=== PATIENT | female | born 1995 | race Caucasian/White ===

== ENCOUNTER → 2019-12-25 | Outpatient (CLI) | payer MEDICAID, SELFPAY ==
[2019-12-28 05:07] LABS: Chlamydia By Nucleic Acid AMP Negative (Negative)
[2019-12-28 07:47] LABS: Gonococcus By Nucleic Acid AMP Negative (Negative)
== END | disposition home or self-care (01) ==
LOC: LABSPEC 13:48
PROVIDERS: Visit Provider Student in an Organized Health Care Education/Training Program
DX: Z11.3 Encounter for screening for infections with a predominantly sexual mode of transmission (principal); Z32.01 Encounter for pregnancy test, result positive
CPT/HCPCS: 87491; 87591

== ENCOUNTER → 2020-01-08 17:00 | Outpatient (CLI) | payer MEDICAID, SELFPAY ==
[2020-01-08 17:33] LABS: Absolute Lymphocyte Count 1.39 X10^3/uL (0.83-4.51); Absolute Neutrophil Count 4.5 X10^3/uL (2.0-7.7); Basophil# 0.03 X10^3/uL; Basophil% 0.5 % (0-1); Eosinophil# 0.04 X10^3/uL; Eosinophils% 0.6 % (0-5); Hematocrit 35.1 % (37-47); Hemoglobin 12.3 g/dL (12.0-15.0); Lymphocyte # 1.39 X10^3/ul (4.0); Lymphocyte % 21.8 % (19-41); Mean Corpuscular Hgb 30.9 pg (27.0-32.0); Mean Corpuscular Volume 88.2 fL (81-99); Mean Platelet Vol. 10.1 fl (6.2-12.0); Monocyte% 6.3 % (0-10); NRBC Flagged by Analyzer 0 % (0-5); Neutrophil # 4.49 X10^3/uL (2.7-7.7); Neutrophil % 70.5 % (47-70); Platelet Count 194 K/mm3 (150-450); RBC Distribution Width CV 12.1 % (11.6-14.6); RBC Distribution Width SD 38.5 fl (35.1-43.9); Red Blood Count 3.98 M/mm3 (4.2-5.4); White Blood Count 6.4 K/mm3 (4.4-11.0)
[2020-01-08 17:48] LABS: Color, Urine Yellow (Yellow); Glucose, Dipstick Normal (Normal); Ketone-Dipstick Negative (Negative); Leukocyte Esterase-Dipstick 25 /ul (Negative); Nitrite-Dipstick Negative (Negative); Occult Blood-Urine Negative /ul (Negative); Protein-Dipstick Negative (Negative); Specific Gravity, Urine 1.025 (1.002-1.030); Urine Bilirubin Dipstick Negative (Negative); Urine Clarity Clear (Clear); Urine Urobilinogen Normal (Normal)
[2020-01-08 17:58] LABS: Amphetamine Urine VISTA NEGATIVE (<1000 ng/mL); Barbiturate Urine VISTA NEGATIVE (< 200 ng/mL); Benzodiazepine Urine VISTA NEGATIVE (< 200 ng/mL); Cocaine Urine VISTA NEGATIVE (< 300 ng/mL); Ecstacy Urine VISTA NEGATIVE (< 500 ng/mL); Methadone Urine VISTA NEGATIVE (< 300 ng/mL); PCP Urine VISTA NEGATIVE (< 25 ng/mL); THC Urine VISTA NEGATIVE (< 50 ng/mL); Vista UDS pH Range 5
[2020-01-09 10:52] LABS: HIV - WCH Non-Reactive (Nonreactive); Hepatitis B Surface Antigen Non-Reactive (Nonreactive); Hepatitis C Antibody Non-Reactive (Nonreactive); Rubella IgG 114.7 IU/mL
[2020-01-10 01:11] LABS: Prenatal RPR NONREACTIVE (NONREACTIVE)
== END ==
PROVIDERS: Visit Provider Obstetrics & Gynecology
DX: Z34.81 Encounter for supervision of other normal pregnancy, first trimester (principal)
CPT/HCPCS: 36415; 80307; 81002; 84443; 85025; 86703; 86762; 86803; 87086; 87088; 87340

== ENCOUNTER → 2020-03-11 16:41 | Outpatient (CLI) | payer MEDICAID, SELFPAY ==
[2020-03-18 13:24] LABS: CF, Screen Comment: (.)
== END ==
PROVIDERS: Visit Provider Student in an Organized Health Care Education/Training Program
DX: Z13.79 Encounter for other screening for genetic and chromosomal anomalies (principal)
CPT/HCPCS: 36415; 81220

== ENCOUNTER 2020-04-10 18:35 | Outpatient (CLI) | payer MEDICAID, SELFPAY ==
[2020-04-10] VITALS (9 sets, daily range): BP systolic 109–119; BP diastolic 62–67; PULSE 90–116; TEMP 37.3; O2SAT 79–100; BMI 32.3
[2020-04-10] MEDS: Lactated Ringers 500 ML 999 ML IV (19:50)
[2020-04-10] MEDS: Ondansetron 4 MG/2 ML Vial IV (19:57)
[2020-04-10 20:12] LABS: Absolute Lymphocyte Count 0.45 X10^3/uL (0.83-4.51); Absolute Neutrophil Count 7.9 X10^3/uL (2.0-7.7); Basophil# 0.03 X10^3/uL; Basophil% 0.3 % (0-1); Eosinophil# 0.01 X10^3/uL; Eosinophils% 0.1 % (0-5); Hematocrit 36.4 % (37-47); Hemoglobin 12.6 g/dL (12.0-15.0); Lymphocyte # 0.45 X10^3/ul (4.0); Lymphocyte % 5.1 % (19-41); Mean Corp Hgb Conc 34.6 g/dL (32-36); Mean Corpuscular Hgb 30.5 pg (27.0-32.0); Mean Corpuscular Volume 88.1 fL (81-99); Mean Platelet Vol. 10.3 fl (6.2-12.0); Monocyte# 0.33 X10^3/uL; Monocyte% 3.8 % (0-10); NRBC Flagged by Analyzer 0 % (0-5); Neutrophil # 7.93 X10^3/uL (2.7-7.7); Neutrophil % 90.5 % (47-70); POSITIVE DIFFERENTIAL YES; Platelet Count 175 K/mm3 (150-450); RBC Distribution Width CV 13.4 % (11.6-14.6); RBC Distribution Width SD 42.6 fl (35.1-43.9); Red Blood Count 4.13 M/mm3 (4.2-5.4); White Blood Count 8.8 K/mm3 (4.4-11.0)
[2020-04-10] MEDS: Lactated Ringers 1,000 ML 150 ML IV (20:21)
[2020-04-10 20:30] LABS: ALB/GLOB Ratio 0.8 RATIO (0.9-2.4); AST(SGOT) 16 U/L (15-37); Alanine Aminotransfer ALT/SGPT 16 U/L (13-56); Alkaline Phosphatase 54 U/L (45-117); Anion Gap 10 (5-15); BUN 11 mg/dL (7-18); BUN/Creat Ratio 24.7 RATIO (10-20); Calcium,Total 8.1 mg/dL (8.5-10.1); Chloride 108 mmol/L (98-107); Creatinine, Serum 0.44 mg/dL (0.55-1.02); EST Glomerular Filtration Rate 184 mL/min (>60); Est Glom Filt Rate - Afr Amer 223 mL/min (>60); Estimated Creatinine Clearance 164.49 ml/min; Glucose 90 mg/dL (74-106); Lipase 97 U/L (73-393); Potassium 3.7 mmol/L (3.5-5.1); Sodium Level 139 mmol/L (136-145)
[2020-04-10 20:49] LABS: Differential Indicated SCAN CRITERIA MET
[2020-04-10 20:50] LABS: Anisocytosis RARE; Platelet Estimate ADEQUATE (ADEQ); Red Cell Morphology N CHROM NORMAL (NORM C&C)
--- NOTE | 2020-04-10 23:10 | PCM.HPOB.BLA ---
History and Physical Chief complaint: Nausea vomiting diarrhea History of present illness: 24-year-old G2, P1 at 21 weeks and 6 days with MIKE: 08/15/2020 by LMP arrives with nausea vomiting and diarrhea. Patient has had the symptoms since this morning. 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 Patient was tested for Covid earlier this week and today both negative. Denies headache, visual changes, chest pain, shortness of breath, right upper quadrant pain. Patient states good movement. Obstetric history: G1: Breech 38-week primary . Gestational hypertension G2: Current Past medical history: Hypothyroidism, depression Past surgical history: Breast reduction, Medications: vitamin, aspirin, Synthroid, Ventolin Allergies: No known drug allergies Social history: Denies smoking, alcohol use, drug use Review of systems: Besides the above pertinent positives a full review of systems was performed and found to be negative Physical exam: Vital Signs Temp Pulse BP Pulse Ox 04/10/20 20:17 99.1 F 90 119/62 04/10/20 19:31 79 04/10/20 19:12 110 H 100 04/10/20 19:07 110 H 100 04/10/20 19:02 116 H 97 04/10/20 18:57 106 H 99 04/10/20 18:51 104 H 99 04/10/20 18:46 113 H 100 General: Normal-appearing no acute distress HEENT: Normocephalic atraumatic no cervical lymphadenopathy Cardiac: Regular rate and rhythm murmurs rubs or gallops Respiratory: Clear to auscultation bilaterally no wheezes rales or crackles Abdomen: Soft nontender, gravid. Pelvic exam: Cervical exam is closed thick and high Extremities: No peripheral edema normal peripheral pulses Psych: Normal affect normal demeanor nonpressured speech Mom's Labs & Results 04/10/20 04/10/20 19:35 19:35 WBC 8.8 RBC 4.13 L Hgb 12.6 Hct 36.4 L MCV 88.1 MCH 30.5 MCHC 34.6 RDW Std Deviation 42.6 RDW Coeff of Ca 13.4 Plt Count 175 MPV 10.3 Immature Gran % (Auto) 0.200 Neut % (Auto) 90.5 H Lymph % (Auto) 5.1 L [place] % (Auto) 3.8 Eos % (Auto) 0.1 Baso % (Auto) 0.3 Absolute Neuts (auto) 7.9 H Absolute Lymphs (auto) 0.45 L Nucleated RBC % 0 Differential Comment SEE COMMENT Platelet Estimate ADEQUATE RBC Morphology N CHROM Anisocytosis RARE Sodium 139 Potassium 3.7 Chloride 108 H Carbon Dioxide 21.0 Anion Gap 10 BUN 11 Creatinine 0.44 L Estim Creat Clear Calc 164.49 Est GFR (MDRD) Af Amer 223 Est GFR (MDRD) Non-Af 184 BUN/Creatinine Ratio 24.7 H Glucose 90 Calcium 8.1 L Total Bilirubin 0.30 AST 16 ALT 16 Alkaline Phosphatase 54 Total Protein 7.0 Albumin 3.0 L Globulin 4.0 Albumin/Globulin Ratio 0.8 L Lipase 97 Assessment and plan: 24-year-old G2, P1 at 21 weeks and 6 days with likely gastroenteritis from her work born pathogen. Covid negative x2. To IV hydrate, Zofran for nausea. When tolerating p.o. we will give Imodium for diarrhea.
[2020-04-11 00:02] VITALS: TEMP 37.8
[2020-04-11] MEDS: 0.9% Saline Lock 10 ML Syringe IV (00:02)
[2020-04-11] MEDS: Ondansetron 4 MG/2 ML Vial IV (00:02)
[2020-04-11] MEDS: Lactated Ringers 1,000 ML 150 ML IV (02:55)
[2020-04-11] MEDS: Loperamide 2 MG Capsule 8 MG PO (02:57)
[2020-04-11 03:05] VITALS: BP 116/63; PULSE 96; O2SAT 97
[2020-04-11 03:06] VITALS: TEMP 37.2
--- NOTE | 2020-04-11 08:08 | OB.TRI.NOTE ---
History of Present Illness Date of Service: 04/10/20 Was patient seen by the physician?: No Reason For Visit: Nausea Vomiting Diarrhea Date of Service: 04/10/20 Final MIKE: 08/15/20 Final MIKE Source: LMP Gestational age: 22 Weeks and 0 Days History of Present Illness: 24-year-old G2, P1 at 21 weeks and 6 days with MIKE: 08/15/2020 by LMP called the office with nausea vomiting and diarrhea. patient told the office has had the symptoms since this morning. 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 Patient was tested for Covid earlier this week and today both negative. Denies headache, visual changes, chest pain, shortness of breath, right upper quadrant pain. Patient states good movement. Allergies No Known Allergies Allergy (Verified 04/10/20 19:39) Laboratory Studies: Laboratory Tests 04/10/20 04/10/20 Range/Units 19:35 19:35 WBC 8.8 (4.4-11.0) K/mm3 RBC 4.13 L (4.2-5.4) M/mm3 Hgb 12.6 (12.0-15.0) g/dL Hct 36.4 L (37-47) % MCV 88.1 (81-99) fL MCH 30.5 (27.0-32.0) pg MCHC 34.6 (32-36) g/dL RDW Std Deviation 42.6 (35.1-43.9) fl RDW Coeff of Ca 13.4 (11.6-14.6) % Plt Count 175 (150-450) K/mm3 MPV 10.3 (6.2-12.0) fl Immature Gran % (Auto) 0.200 (0.0-0.9) % Neut % (Auto) 90.5 H (47-70) % Lymph % (Auto) 5.1 L (19-41) % [place] % (Auto) 3.8 (0-10) % Eos % (Auto) 0.1 (0-5) % Baso % (Auto) 0.3 (0-1) % Absolute Neuts (auto) 7.9 H (2.0-7.7) X10^3/uL Absolute Lymphs (auto) 0.45 L (0.83-4.51) X10^3/uL Nucleated RBC % 0 (0-5) % Differential Comment SEE COMMENT Platelet Estimate ADEQUATE (ADEQ) RBC Morphology N CHROM (NORM C&C) NORMAL Anisocytosis RARE Sodium 139 (136-145) mmol/L Potassium 3.7 (3.5-5.1) mmol/L Chloride 108 H (98-107) mmol/L Carbon Dioxide 21.0 (21.0-32.0) mmol/L Anion Gap 10 (5-15) BUN 11 (7-18) mg/dL Creatinine 0.44 L (0.55-1.02) mg/dL Estim Creat Clear Calc 164.49 ml/min Est GFR (MDRD) Af Amer 223 (>60) mL/min Est GFR (MDRD) Non-Af 184 (>60) mL/min BUN/Creatinine Ratio 24.7 H (10-20) RATIO Glucose 90 (74-106) mg/dL Calcium 8.1 L (8.5-10.1) mg/dL Total Bilirubin 0.30 (0.20-1.00) mg/dL AST 16 (15-37) U/L ALT 16 (13-56) U/L Alkaline Phosphatase 54 (45-117) U/L Total Protein 7.0 (6.4-8.2) g/dL Albumin 3.0 L (3.2-5.0) g/dL Globulin 4.0 (2.2-4.2) g/dL Albumin/Globulin Ratio 0.8 L (0.9-2.4) RATIO Lipase 97 (73-393) U/L Physical Exam Vitals: Vital Signs Temp Pulse BP Pulse Ox 98.9 F 96 116/63 97 04/11/20 03:06 04/11/20 03:05 04/11/20 03:05 04/11/20 03:05 NST - FHR Rate Baby A Baseline: 120 Impression/Plan 24-year-old G2, P1 at 21 weeks and 6 days with likely gastroenteritis from her work born pathogen. Covid negative x2. IV hydrate, Zofran for nausea. Imodium for diarrhea. Patient improved after IV hydration now tolerating p.o. heart tones reassuring. Cervical exam was closed thick and high no signs of labor. Will discharge home continue p.o. hydration Zofran for nausea and Imodium for diarrhea. We will follow-up in office
== END 2020-04-11 07:20 | disposition home or self-care (01) ==
LOC: WPOUT 18:42 → WP 18:43
PROVIDERS: Visit Provider Obstetrics & Gynecology
DX: O21.2 Late vomiting of pregnancy (principal); O26.892 Other specified pregnancy related conditions, second trimester; R19.7 Diarrhea, unspecified; Z3A.21 21 weeks gestation of pregnancy
CPT/HCPCS: 96361 ×10; 96374; 59050; 80053; 83690; 85025; 99218; J7120; A4216; G0378; J2405

== ENCOUNTER → 2020-05-09 14:59 | Outpatient (CLI) | payer MEDICAID, SELFPAY ==
[2020-04-10 18:54] VITALS: BMI 32.3
[2020-05-09 17:02] LABS: Hematocrit 33.9 % (37-47); Hemoglobin 11.3 g/dL (12.0-15.0); Mean Corp Hgb Conc 33.3 g/dL (32-36); Mean Corpuscular Hgb 30.5 pg (27.0-32.0); Mean Corpuscular Volume 91.6 fL (81-99); Mean Platelet Vol. 10.3 fl (6.2-12.0); Platelet Count 172 K/mm3 (150-450); RBC Distribution Width CV 13.9 % (11.6-14.6); RBC Distribution Width SD 46.7 fl (35.1-43.9)
[2020-05-09 17:13] LABS: Glucose Challenge Gest 1H 50g 120 mg/dL (70-140)
== END ==
PROVIDERS: Visit Provider Obstetrics & Gynecology
DX: Z34.82 Encounter for supervision of other normal pregnancy, second trimester (principal)
CPT/HCPCS: 36415; 82950; 85027

== ENCOUNTER → 2020-07-03 17:13 | Outpatient (CLI) | payer MEDICAID, SELFPAY ==
[2020-04-10 18:54] VITALS: BMI 32.3
[2020-07-03 18:29] LABS: T4 Free Direct 0.79 ng/dL (0.76-1.46); Thyroid Stim Hormone (TSH) 2.97 uIU/mL (0.358-3.74)
== END ==
PROVIDERS: Visit Provider Obstetrics & Gynecology
DX: O99.283 Endocrine, nutritional and metabolic diseases complicating pregnancy, third trimester (principal); E03.9 Hypothyroidism, unspecified; Z3A.00 Weeks of gestation of pregnancy not specified
CPT/HCPCS: 36415; 84439; 84443

== ENCOUNTER 2020-07-06 10:15 | Outpatient (CLI) | payer MEDICAID, SELFPAY ==
[2020-04-10 18:54] VITALS: BMI 32.3
[2020-07-06 10:25] VITALS: BMI 35.2
[2020-07-06 10:36] VITALS: TEMP 36.9
[2020-07-06 10:37] VITALS: BP 116/75; PULSE 80
[2020-07-06 11:00] LABS: ROM Internal Control Test YES-OK TO RESULT pt. (Internal QC); ROM Patient Test Negative (Negative)
--- NOTE | 2020-07-07 19:36 | OB.TRI.PN ---
Progress Notes Date of Service: 07/06/20 Laboratory Studies: at 34/4w presenting with contractions and leaking. CE per RN 1 cm FHR reassuring, reactive, toco quiet Neg PROM Discharged home with precautions. Laboratory Tests 07/06/20 Range/Units 10:30 Vag Amniotic Fld Detect Negative (Negative)
== END 2020-07-06 11:25 | disposition home or self-care (01) ==
LOC: WPOUT 10:22 → WP 10:24
PROVIDERS: Visit Provider Student in an Organized Health Care Education/Training Program
DX: O42.913 Preterm premature rupture of membranes, unspecified as to length of time between rupture and onset of labor, third trimester (principal); Z3A.34 34 weeks gestation of pregnancy
CPT/HCPCS: 59050; 84112; 99218; G0378

== ENCOUNTER → 2020-07-21 | Outpatient (CLI) | payer MEDICAID, SELFPAY ==
[2020-07-06 10:25] VITALS: BMI 35.2
== END | disposition home or self-care (01) ==
LOC: LABSPEC 17:16
PROVIDERS: Visit Provider Obstetrics & Gynecology
DX: Z36.85 Encounter for antenatal screening for Streptococcus B (principal)
CPT/HCPCS: 87081

== ENCOUNTER 2020-08-08 05:18 | Inpatient (IN) | payer MEDICAID, SELFPAY ==
[2020-08-08] VITALS (17 sets, daily range): BP systolic 96–126; BP diastolic 48–92; PULSE 72–114; RESP 13–19; TEMP 35.9–36.3; O2SAT 98–100; BMI 36.5
[2020-08-08] MEDS: Lactated Ringers 1,000 ML 999 ML IV (05:50)
[2020-08-08] MEDS: Acetaminophen 500 MG Tablet 1000 MG PO ×3 (06:07→18:19)
[2020-08-08 06:13] LABS: Absolute Lymphocyte Count 1.83 X10^3/uL (0.83-4.51); Absolute Neutrophil Count 4.6 X10^3/uL (2.0-7.7); Basophil# 0.04 X10^3/uL; Basophil% 0.6 % (0-1); Eosinophil# 0.04 X10^3/uL; Eosinophils% 0.6 % (0-5); Hematocrit 32.5 % (37-47); Hemoglobin 10.6 g/dL (12.0-15.0); Lymphocyte # 1.83 X10^3/ul (0.83-4.51); Lymphocyte % 26.3 % (19-41); Mean Corp Hgb Conc 32.6 g/dL (32-36); Mean Corpuscular Hgb 28.7 pg (27.0-32.0); Mean Corpuscular Volume 88.1 fL (81-99); Mean Platelet Vol. 10.7 fl (6.2-12.0); Monocyte# 0.39 X10^3/uL; Monocyte% 5.6 % (0-10); NRBC Flagged by Analyzer 0 % (0-5); Neutrophil # 4.63 X10^3/uL (2.7-7.7); Neutrophil % 66.6 % (47-70); Platelet Count 182 K/mm3 (150-450); RBC Distribution Width CV 13.9 % (11.6-14.6); RBC Distribution Width SD 44.7 fl (35.1-43.9); Red Blood Count 3.69 M/mm3 (4.2-5.4)
[2020-08-08] MEDS: Lactated Ringers 1,000 ML 150 ML IV (06:55)
[2020-08-08] MEDS: Sodium Citrate/Citric Acid 30 ML UDC PO (06:56)
--- NOTE | 2020-08-08 06:58 | PCM.HP.BLA ---
History and Physical Date of Admission: 08/08/20 Chief complaint: Repeat section bilateral tubal ligation at term History of present illness: 25 G2, P1 at 39 weeks and 0 days with MIKE 08/15/2020 by LMP arrives for repeat section bilateral tubal ligation at term. Patient denies headache, chest pain, shortness of breath, visual changes, nausea vomiting, right upper quadrant pain. Patient states good movement. Obstetric history: G1: 38-week primary section for breech G2: Current Past medical history: Hypothyroid, depression Medications: vitamin Past surgical history: section, breast reduction Allergies: No known drug allergies Social history: Denies smoking, alcohol use, drug use Family history: Denies history DVT or PE Review of systems: Besides the above pertinent positives a full review of systems was performed and found to be negative Physical exam: Vital signs: Blood pressure 125/92 pulse 86 respiratory rate 16 temp 97.4 pulse ox 98% on room air General: Normal-appearing no acute distress HEENT: Normocephalic atraumatic no cervical adenopathy Cardiac/respiratory: No use of accessory muscles, nonlabored breathing Abdomen: Soft, nontender, gravid Extremities: No peripheral edema normal peripheral pulses Neuro: Grossly intact Psych: Normal affect normal demeanor nonpressured speech CBC: White blood cell count 7, hemoglobin 10.6, hematocrit 32.5, platelets 182. Blood type O+ antibody negative Assessment and plan: 25-year-old G2, P1 at 39 weeks and 0 days arrives for repeat section bilateral tubal ligation Admit labor and delivery CEFM 2 g Ancef Routine orders Anesthesia to see
[2020-08-08] MEDS: Cefazolin 2 GM in 0.9% Normal Saline 100 ML IV (07:28)
--- NOTE | 2020-08-08 08:29 | EX.PCM.OBRPT ---
Details Operative Information Date of Procedure: 08/08/20 Pre-Operative Diagnosis: Term, history of section, desires permanent sterilization Post-Operative Diagnosis: Term, history of section, desires permanent sterilization Indications Narrative: Procedure: Repeat low transverse section Via Pfannenstiel incision, bilateral salpingectomy Surgeon: Bhavin Canela MD EBL: 600 cc Urine output: 100 cc IV fluids: 1000 cc Complications: None Specimen: Bilateral fallopian tubes Findings: Female infant in vertex position Apgars 8/9. Normal uterus, tubes, ovaries. Minimal to moderate amount of adhesions. Consent: Patient with term and history of section and desires permanent sterilization in need of repeat section and bilateral salpingectomy. Patient understands the risk of the procedure include but are not limited to visceral or vascular injury, prolonged hospitalization, blood loss and need for transfusion, reoperation. Patient states understanding and wish to proceed. All questions were answered consent was signed. Procedure: Patient was brought back to the OR where spinal anesthesia found to be adequate. 2 g Ancef were given for infection prophylaxis. Patient was prepared and draped in a dorsal supine position with leftward tilt. Pfannenstiel incision was made skin with a scalpel. The incision was carried down to the fascia with a scalpel. Fascia was excised and extended laterally. Inferior aspect of the fascia was grasped and the underlying rectus and pyramidalis muscle were dissected off sharply with Wiley scissors. In a similar fashion the superior aspect of the fascia was grasped and the underlying rectus muscle was dissected off sharply. Rectus muscles dissected the midline down to the level of pubic symphysis. Preperitoneal fat tissue was noted and peritoneum was entered bluntly. Peritoneum was extended superiorly and inferiorly with good visualization of bladder. Bladder blade was inserted vesicouterine peritoneum was identified. Low transverse hysterotomy was made. Hand was placed into the hysterotomy and gentle fundal pressure was applied once the head was brought into the incision and the bladder blade was removed. Head and shoulders were delivered with ease. Cord was cut and clamped. Baby handed off to nursing. Placenta was delivered via cord traction and fundal massage. IV oxytocin was initiated in order to facilitate uterine contractions. Uterus was exteriorized and wiped out with dry laparotomy sponge in order to remove remaining placental membranes. Uterus was closed in continuous running fashion. 2nd layer was performed. Good hemostasis was noted. Right fallopian tube was identified out to the fimbria and using a LigaSure device the mesosalpinx was cut and cauterized, fallopian tubes sent to pathology. In similar fashion the left fallopian tube was identified to the fimbria and using a LigaSure device the mesosalpinx was cut and cauterized, fallopian tubes sent to pathology. Uterus was placed back in the abdominal cavity incision was reinspected and good hemostasis was noted. Muscle layer was closed with horizontal mattress sutures. Fascia was closed in continuous running fashion. Skin was closed in a subcuticular fashion. Good hemostasis was noted. All counts correct x2. Patient tolerated procedure well and was brought to recovery in stable condition.
[2020-08-08] MEDS: Oxytocin 30 units/NS 500 ml 30 UNITS/500 ML IV.SOLN 167 UNITS IV (09:00)
[2020-08-08] MEDS: Methylergonovine 0.2 MG/ML Ampul IM (09:15)
--- NOTE | 2020-08-08 09:18 | FALS_PTH ---
PATIENT: KARIS TANG LOC: WP U#:[id number] AGE/SX: 25/F ROOM: WP006 RE08/08/[address]: Dr. Bhavin Canela MD : 1995 BED: 1 DIS: 08/09/2020 SPEC #: [id number] RECD: 08/08/20 11:23 STATUS: ADALGISA REJovany #: [id number] HENRY: 08/08/20 09:[address]: Bhavin Canela DEPT: SURGICAL PATHOLOGY RECD BY: Justin Rodriguez ENTERED: 08/08/20 11:37 SP TYPE: FALL TUBES OTHR DR: No Primary Care Phys Tissues: Fallopian tube Procedures: Surgery Specimen Level II Surgery Specimen Level IV HEADER OPERATION: Tubal ligation PRE-OP DIAGNOSIS: Sterilization TISSUE SUBMITTED: Fallopian tubes, suture in left tube MICROSCOPIC DIAGNOSIS Right and left fallopian tubes, bilateral salpingectomies: Right fallopian tube ? benign paratubal cyst. Left fallopian tube - no pathologic change. AM:brian 08/12/2020 MICROSCOPIC DESCRIPTION Slides are reviewed. GROSS DESCRIPTION Received in fixative is one container labeled with the patient's name and designated bilateral fallopian tubes, left stitch. The specimen consists of bilateral fallopian tubes including fimbrial ends. The right fallopian tube measures 8 cm in length and up to 1 cm in diameter and the left fallopian tube measures 7 cm in length and 1 cm in diameter. A paratubal cyst is noted on the right fallopian tube measuring 0.5 cm in greatest dimension. Sections reveal unremarkable cut surfaces. Mold Repairer sections are submitted in two cassettes as follows: 1 ? right fallopian tube and paratubal cyst, 2 ? let fallopian tube. / SJ:brian 08/08/20 TC:5 CPT: 65611, 50641
[2020-08-08] MEDS: Ketorolac 30 MG/ML Syringe IV ×3 (09:49→22:33)
[2020-08-08] MEDS: Ondansetron 4 MG/2 ML Vial IV (09:49)
[2020-08-08] MEDS: 0.9% Saline Lock 10 ML Syringe IV ×2 (09:51→22:33)
--- NOTE | 2020-08-08 10:03 | NURSING ---
0950 second pad 176 ml total pads 464
[2020-08-08] MEDS: proCHLORPERazine 10 MG/2 ML Vial IV (10:49)
--- NOTE | 2020-08-08 10:59 | NURSING ---
1045 pad 105 ml bringing total ebl in recovery to 569
--- NOTE | 2020-08-08 11:21 | NURSING ---
spoke with Destiney in recovery made aware total EBL in recovery [address] her to notify [address] jay; currently bleeding is small and fundus is firm
[2020-08-08 11:26] LABS: Pathology Specimen OB SEE PATHOLOGY REPORT
[2020-08-08] MEDS: Lactated Ringers 1,000 ML 100 ML IV (12:32)
--- NOTE | 2020-08-08 12:47 | NURSING ---
1235 pt sat on side of bed; pt states that she feels dizzy and is not ready yet to walk
[2020-08-08] MEDS: Senna/Docusate Sodium 1 Tablet PO (17:16)
[2020-08-08] MEDS: Enoxaparin 40 MG/0.4 ML Syringe SC (21:03)
[2020-08-09 00:25] VITALS: BP 127/76; PULSE 94; RESP 94; TEMP 35.9; O2SAT 97
[2020-08-09] MEDS: Acetaminophen 500 MG Tablet 1000 MG PO ×3 (00:25→12:39)
[2020-08-09] MEDS: Ketorolac 30 MG/ML Syringe IV (04:39)
[2020-08-09 04:40] VITALS: BP 110/69; PULSE 82; RESP 17; TEMP 35.9; O2SAT 96
[2020-08-09] MEDS: 0.9% Saline Lock 10 ML Syringe IV (04:40)
[2020-08-09 06:56] LABS: Hematocrit 21.2 % (37-47); Hemoglobin 6.9 g/dL (12.0-15.0); Mean Corp Hgb Conc 32.5 g/dL (32-36); Mean Corpuscular Hgb 28.8 pg (27.0-32.0); Mean Corpuscular Volume 88.3 fL (81-99); Mean Platelet Vol. 10.5 fl (6.2-12.0); Platelet Count 137 K/mm3 (150-450); RBC Distribution Width CV 14.2 % (11.6-14.6); RBC Distribution Width SD 45.1 fl (35.1-43.9); White Blood Count 7.6 K/mm3 (4.4-11.0)
[2020-08-09 08:33] VITALS: BP 99/53; PULSE 80; RESP 16; TEMP 36.7; O2SAT 97
[2020-08-09] MEDS: Senna/Docusate Sodium 1 Tablet PO (09:49)
[2020-08-09] MEDS: Enoxaparin 40 MG/0.4 ML Syringe SC (09:50)
--- NOTE | 2020-08-09 10:28 | PCM.DC ---
Discharge Instructions Diet Discharge Diet: No restrictions Activity Discharge Activity: Return to Normal Activity, May Drive, May Shower and - (No tub baths for 2 weeks) May resume sexual activity in: 4-6 weeks Lifting Restrictions: No lifting over 25 pounds for 2-3 Dressing / Incision Call your doctor if your incision/area has: Continuous Slow Oozing, Sudden Increased Bleeding, Increased Pain/ Swelling and Foul Smelling Discharge Call your doctor if you observe: Fever of 101 or Higher, Shortness of breath and Chest pain Follow Up Care Please Follow Up With: Bhavin Canela MD When: 2 weeks postoperatively, 4 to 6 weeks Test Results: Test results from this visit will be discussed in further detail at your follow-up appointment, if applicable. Discharge Plan Admission Admit Date/Time: 08/08/20 05:18 Attending Provider: Bhavin Canela Primary Care Provider: Care PhysicianShantell Primary Discharge Orders/Prescriptions Prescriptions: No Action PNV cmb#[id number]-[id number] fumarate-FA 1 EACH tablet 1 ea PO DAILY RF: 0 Disposition Discharge Orders: Discharge Patient (Routine); Ordered 08/09/20 Ordered By: Dr. Bhavin Canela
--- NOTE | 2020-08-09 10:30 | PCM.PN.OB ---
Subjective Subjective No overnight complaints. Pain well controlled. Minimal to no vaginal bleeding. Asymptomatic, does not feel weak able to ambulate with ease. Objective Data Objective Data Vital Signs: Vital Signs Temp Pulse Resp BP Pulse Ox 98.0 F 80 16 99/53 L 97 08/09/20 08:33 08/09/20 08:33 08/09/20 08:33 08/09/20 08:33 08/09/20 08:33 Oxygen Delivery Method Room Air Weight: 206 lb 6 oz Body Mass Index (BMI) 36.5 Intake & Output: Intake and Output for Last 24 Hours 08/07/20 08/08/20 08/09/20 23:59 23:59 23:59 Intake Total 5090.5 / 5090.5 Output Total 2600 / 2600 700 / 700 Balance 2490.5 / 2490.5 -700 / -700 Lab / Micro Data Result Diagrams: 08/09/20 06:50 Labs: Laboratory Results - last 24 hr 08/09/20 06:50 WBC 7.6 RBC 2.40 L Hgb 6.9 L Hct 21.2 L MCV 88.3 MCH 28.8 MCHC 32.5 RDW Std Deviation 45.1 H RDW Coeff of Ca 14.2 Plt Count 137 L MPV 10.5 Micro: Microbiology 08/08/20 05:41 Interface Orders SARS-CoV-2 Antigen (Rapid) - Final Physical Exam Const alert, oriented x3, no apparent distress and average body habitus HEENT normocephalic and moist oral mucous membranes Head and Scalp: atraumatic Neck full ROM and no lymphadenopathy Resp normal respiratory effort, no retractions and no use of accessory muscles GI normal to inspection, nondistended, normoactive bowel sounds GI Narrative: Bandage clean dry and intact Extremity normal to inspection, full ROM and no clubbing, cyanosis or edema Skin no rashes or lesions noted Psych mental status grossly normal, affect normal, speech normal and activity/motor behavior normal Assessment & Plan (1) : PLAN: Postoperative day 1 status post repeat section bilateral tubal ligation at term. Acute on chronic anemia secondary to acute blood loss. Hemoglobin 6.9, patient asymptomatic and vital signs stable. Discussed at home monitoring versus prolonged hospital stay versus blood transfusion risk benefits alternatives. After long discussion patient desires at home monitoring feeling well able to ambulate with ease. With vital signs stable and bleeding well controlled seems reasonable. 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
[2020-08-09 12:50] VITALS: BP 115/74; PULSE 100; RESP 18; TEMP 36.4; O2SAT 96
== END 2020-08-09 14:05 | disposition home or self-care (01) | DRG 539 ==
PROVIDERS: Admitting Provider Obstetrics & Gynecology; Referring Provider Obstetrics & Gynecology; Visit Provider Obstetrics & Gynecology
PROC: 10D00Z1 Extraction of Products of Conception, Low, Open Approach (ICD-10-PCS; CPT 59514; principal; 2020-08-08 07:15)
DX: O34.211 Maternal care for low transverse scar from previous cesarean delivery (principal); O90.81 Anemia of the puerperium; D62 Acute posthemorrhagic anemia; Z3A.39 39 weeks gestation of pregnancy; Z37.0 Single live birth; Z30.2 Encounter for sterilization; Z87.59 Personal history of other complications of pregnancy, childbirth and the puerperium
CPT/HCPCS: 85025; 85027; 86850; 86900; 86901; 87426; 88302; 88305; 99218; J7120; A4216; G0378; J2405